=== PATIENT | female | born 1965 | race American Indian/Alaskan Native ===

== ENCOUNTER 2016-10-29 13:19 | Outpatient (CLI) | payer MEDICAID ==
--- NOTE | 2016-10-29 15:17 | Mammography Report ---
BILATERAL MAMMOGRAM: FINDINGS: There are scattered fibroglandular densities (approximately 25%-50% glandular). No mass, distortion, suspicious calcification, or skin change is seen. CAD was utilized. IMPRESSION: Negative mammogram. There is no mammographic evidence of malignancy. RECOMMENDATION: Follow-up per ACS guidelines. BI-RADS CATEGORY: 1 = Negative ACR BI-RADS MAMMOGRAPHIC CODES: 0 = Needs additional imaging evaluation; 1 = Negative; 2 = Benign; 3 = Probably benign; 4 = Suspicious; 5 = Malignant; 6 = Known biopsy-proven malignancy COMMENT: 1. Dense breast tissue, i.e., adenosis, fibrocystic changes, etc., may obscure an underlying neoplasm. 2. Approximately 10% of cancers are not detected with mammography. 3. A negative mammography report should not delay biopsy if a clinically suspicious mass is present. COMMENT: Patient follow-up letters are generated in [id number].
== END 2016-10-29 13:20 | disposition home or self-care (01) ==
LOC: MAMMO 13:19
PROVIDERS: ATTEND Pain Medicine Interventional Pain Medicine
DX: Z12.31 Encounter for screening mammogram for malignant neoplasm of breast (principal); I10 Essential (primary) hypertension; J45.909 Unspecified asthma, uncomplicated
CPT/HCPCS: 77067; G0202

== ENCOUNTER 2017-06-14 09:32 | Emergency (ER) | payer MEDICAID ==
[2017-06-14] MEDS ORDERED: BABY ASPIRIN ONE (09:44)
[2017-06-14 09:49] VITALS: BP 125/79
[2017-06-14] MEDS ORDERED: ASPIRIN PO ONE (09:49)
== END 2017-06-14 10:05 | disposition left against medical advice (07) ==
LOC: ED 09:32
DX: R07.9 Chest pain, unspecified (principal)
CPT/HCPCS: 93005; 93010

== ENCOUNTER 2017-09-01 16:51 | Emergency (ER) | payer MEDICAID ==
[2017-09-01 17:06] VITALS: BP 100/71
== END 2017-09-01 18:38 | disposition left against medical advice (07) ==
LOC: ED 16:51
DX: M54.2 Cervicalgia (principal); M54.9 Dorsalgia, unspecified; Z91.040 Latex allergy status; V79.49XA Driver of bus injured in collision with other motor vehicles in traffic accident, initial encounter; Y93.89 Activity, other specified; Y99.8 Other external cause status; Y92.488 Other paved roadways as the place of occurrence of the external cause; Z53.21 Procedure and treatment not carried out due to patient leaving prior to being seen by health care provider